=== PATIENT | male | born 1955 | race Caucasian/White ===

== ENCOUNTER 2020-06-05 14:46 | Emergency (ER) | payer MEDICARE, BC ==
[~2020-06-05] VITALS: Ht 177.8 cm; Wt 94.8 kg
--- NOTE | 2020-06-05 15:18 | NUR ---
came in for "back Pain started earlier today. Hx of stones", to ER bed 4, hooked to monitor, changed to hosp gown, warm blanket provided, patient aao X 4, breathing even and unlabored.
--- NOTE | 2020-06-05 15:25 | NUR ---
DR FALCON AT BEDSIDE
[2020-06-05] MEDS ORDERED: IV NS 0.9% 1,000 ML BAG IV ONE (15:30)
[2020-06-05] MEDS ORDERED: KETOROLAC TROMETHAMINE INJ 30 MG/ML VIAL ONE (15:35)
[2020-06-05] MEDS ORDERED: ONDANSETRON HCL/PF 4 MG/2 ML VIAL ONE (15:35)
[2020-06-05 15:55] LABS: BASOPHILS # (AUTO) 0.1 /CMM (0.0-0.2); EOSINOPHILS % (AUTO) 1.1 % (0.0-6.0); HEMATOCRIT 47 % (39-51); HEMOGLOBIN 16.1 g/dL (13.5-17.5); LYMPHOCYTES # (AUTO) 1.5 /CMM (0.8-4.8); MEAN CORPUSCULAR HGB CONC 34 g/dl (31.0-36.0); MEAN CORPUSCULAR VOLUME 92 fL (80-96); MONOCYTES # (AUTO) 0.4 /CMM (0.1-1.30); MONOCYTES % (AUTO) 5.1 % (2.0-12.0); NEUTROPHILS # (AUTO) 5.7 /CMM (1.8-8.9); NEUTROPHILS % (AUTO) 73.8 % (43.0-81.0); PLATELET COUNT (AUTO) 221 /CMM (150-450); RED BLOOD CELL COUNT(AUTO) 5.13 MIL/uL (4.5-6.0); WHITE BLOOD COUNT (AUTO) 7.7 K/uL (4.3-11.0)
[2020-06-05] MEDS ORDERED: ONDANSETRON HCL/PF 4 MG/2 ML VIAL IV ONE (16:00)
[2020-06-05] MEDS ORDERED: KETOROLAC TROMETHAMINE INJ 30 MG/ML VIAL IV ONE (16:00)
[2020-06-05 16:03] LABS: CALCIUM, SERUM 9.4 mg/dL (8.5-10.1); CREATININE 1.5 mg/dL (0.6-1.3); POTASSIUM 4.6 mmol/L (3.5-5.1)
[2020-06-05 16:14] LABS: ALBUMIN 4.5 g/dL (3.4-5.0); BILIRUBIN,DIRECT 0.2 mg/dL (0.0-0.2); BILIRUBIN,TOTAL 0.7 mg/dL (0.2-1.0); TOTAL PROTEIN, SERUM 7.1 g/dL (6.4-8.2)
--- NOTE | 2020-06-05 17:22 | NUR ---
URINE SAMPLE COLLECTED AND SENT TO LAB
[2020-06-05 17:28] LABS: APPEARANCE,URINE Clear (CLEAR); BILIRUBIN,URINE Negative (NEGATIVE); BLOOD, URINE Large Ery/uL (NEGATIVE); COLOR,URINE Yellow (YELLOW); KETONES,URINE Negative (NEGATIVE); LEUKOCYTE ESTERASE ,URINE Trace (NEGATIVE); NITRITE, URINE Negative (NEGATIVE); PH,URINE 6.5 (5.0-8.0); PROTEIN,URINE Trace mg/dl (NEGATIVE); UGLUCOSE Negative (NEGATIVE); UROBILINOGEN,URINE 0.2 EU/dL (0.2)
--- NOTE | 2020-06-05 17:34 | NUR ---
IV removed. Catheter intact and site benign. Pressure and 4x4 applied to site. No bleeding noted.Patient discharged to home in stable condition. Written and verbal after care instructions given. Patient verbalizes understanding of instruction.
[2020-06-05 17:36] VITALS: BP 142/88
[2020-06-05 17:39] LABS: BACTERIA,URINE Few /HPF (None Seen); RBC,URINE TOO NUMEROUS TO COUN /HPF (0-2)
[2020-06-05 17:40] LABS: SQUAMOUS EPITHELIAL CELL,UR Few /HPF (None Seen)
== END 2020-06-05 17:44 | disposition home or self-care (01) ==
LOC: ER 14:52
DX: N20.0 Calculus of kidney (principal)
CPT/HCPCS: 36415; 74176; 80048; 80076; 81001; 83690; 85025; 87086; 96374; 96375; 99284; J1885; J2405; J7030; 81000-TC

== ENCOUNTER 2021-06-04 10:23 | Emergency (ER) | payer MEDICARE, BC ==
[~2021-06-04] VITALS: Ht 175.3 cm; Wt 90.7 kg
--- NOTE | 2021-06-04 10:23 | NUR ---
PT BIB SELF C/O L FLANK PAIN AND LOWER ABDOMINAL PAIN STARTED 2 DAYS AGO S/P LITHOTRIPSY LAST SATURDAY. PT IS AAOX4, NOT IN RESPIRATORY DISTRESS, V/S STABLE, KEPT RESTED AND COMFORTABLE. WILL CONTINUE TO MONITOR.
--- NOTE | 2021-06-04 10:30 | NUR ---
URINE SPECIMEN COLLECTED AND SENT TO LAB.
--- NOTE | 2021-06-04 10:33 | NUR ---
AT BEDSIDE FOR EVAL.
--- NOTE | 2021-06-04 10:35 | NUR ---
IV LINE ESTABLISHED BLOOD DRAWN AND SENT TO LAB.
--- NOTE | 2021-06-04 10:39 | NUR ---
AHSAN CAI MD, AND DR. PRETTY CAMERON, UROLOGIST, CONSULTING
[2021-06-04 10:48] LABS: BASOPHILS % (AUTO) 0.3 % (0.0-2.0); EOSINOPHILS % (AUTO) 2.4 % (0.0-6.0); HEMATOCRIT 45 % (39-51); HEMOGLOBIN 15.4 g/dL (13.5-17.5); LYMPHOCYTES # (AUTO) 1.8 K/uL (0.8-4.8); LYMPHOCYTES % (AUTO) 29.9 % (20.0-44.0); MEAN CORPUSCULAR HGB CONC 35 g/dl (31.0-36.0); MEAN CORPUSCULAR VOLUME 90 fL (80-96); MONOCYTES # (AUTO) 0.3 K/uL (0.1-1.30); MONOCYTES % (AUTO) 4.4 % (2.0-12.0); NEUTROPHILS # (AUTO) 3.8 K/uL (1.8-8.9); PLATELET COUNT (AUTO) 231 K/uL (150-450); RED BLOOD CELL COUNT(AUTO) 4.95 MIL/uL (4.5-6.0)
[2021-06-04 10:53] LABS: BILIRUBIN,URINE SMALL (NEGATIVE); COLOR,URINE BROWN (YELLOW); LEUKOCYTE ESTERASE ,URINE Small (NEGATIVE); NITRITE, URINE Negative (NEGATIVE); PROTEIN,URINE >=300 mg/dl (NEGATIVE); UGLUCOSE Negative (NEGATIVE); UROBILINOGEN,URINE 0.2 EU/dL (0.2)
[2021-06-04 10:55] LABS: RBC,URINE 21-50 /HPF (0-2)
[2021-06-04 10:56] LABS: CALCIUM, SERUM 8.7 mg/dL (8.5-10.1); CREATININE 1.4 mg/dL (0.6-1.3); POTASSIUM 4.2 mmol/L (3.5-5.1)
[2021-06-04 10:56] LABS: BACTERIA,URINE 1+ /HPF (None Seen); SQUAMOUS EPITHELIAL CELL,UR Few /HPF (None Seen)
[2021-06-04] MEDS ORDERED: CEFTRIAXONE 1 G in IV D5W 50 ML IV ONE (11:00)
[2021-06-04] MEDS ORDERED: MORPHINE SULFATE INJ 4 MG/ML DISP.SYRIN ONE (11:01)
[2021-06-04] MEDS ORDERED: ONDANSETRON HCL/PF 4 MG/2 ML VIAL ONE (11:01)
[2021-06-04] MEDS ORDERED: KETOROLAC TROMETHAMINE 15 MG/ML VIAL ONE (11:09)
--- NOTE | 2021-06-04 11:11 | NUR ---
ANIMAL CARE TECHNICIAN AT BEDSIDE FOR XRAY.
[2021-06-04] MEDS ORDERED: IV NS 0.9% 1,000 ML BAG IV ONE (11:30)
[2021-06-04] MEDS ORDERED: MORPHINE SULFATE INJ 2 MG/ML DISP.SYRIN IV ONE (11:30)
[2021-06-04] MEDS ORDERED: ONDANSETRON HCL/PF - ER 4 MG/2 ML VIAL IV ONE (11:30)
[2021-06-04] MEDS ORDERED: KETOROLAC TROMETHAMINE INJ 30 MG/ML VIAL IV ONE (11:30)
[2021-06-04] MEDS ORDERED: CEPHALEXIN MONOHYDRATE 500 MG CAPSULE PO ONE ×2 (11:57→12:00)
[2021-06-04] MEDS ORDERED: CEPH500C2 PO (12:37)
[2021-06-04] MEDS ORDERED: HYDR-4209 PO (12:37)
--- NOTE | 2021-06-04 13:05 | NUR ---
IV removed. Catheter intact and site benign. Pressure and 4x4 applied to site. No bleeding noted. Patient discharged to home in stable condition. Written and verbal after care instructions given. Patient verbalizes understanding of instruction.
[2021-06-04 13:06] VITALS: BP 125/74
== END 2021-06-04 13:07 | disposition home or self-care (01) ==
LOC: ER 10:25
DX: N23 Unspecified renal colic (principal)
CPT/HCPCS: 36415; 74018; 80048; 81001; 85025; 87086; 96361; 96374; 96375; 99284; J0696; J1885; J2270; J2405 ×2; J7030; J7060